=== PATIENT | male | born 1970 | race Two or more races ===

== ENCOUNTER → 2018-06-17 | Outpatient (CLI) | payer OTHER ==
[2018-06-17 12:09] LABS: Basophils % (A) 1 %; Eosinophils # (A) 0.1 k/uL (0-0.7); Eosinophils % (A) 1 %; HCT 38.3 % (39.0-53.0); HGB 11.5 gm/dL (13.0-17.5); Hypochromasia Moderate; Lymphocytes # (A) 1.9 k/uL (1.0-4.8); Lymphocytes % (A) 28 %; MCH 23.2 pg (25.0-35.0); MCHC 30.1 g/dL (31.0-37.0); MCV 76.9 fL (80.0-100.0); Mean Platelet Volume 6.4; Monocytes # (A) 0.3 k/uL (0-1.0); Monocytes % (A) 4 %; Neutrophils # (A) 4.6 k/uL (1.3-7.7); Neutrophils % (A) 66 %; Platelet Count 287 k/uL (150-450); RBC 4.98 m/uL (4.30-5.90)
[2018-06-17 12:33] LABS: Cholesterol 182 mg/dL (<200); Glucose 113 mg/dL (74-99); HDL Cholesterol 42 mg/dL (40-60); LDL Cholesterol,Calculated 96 mg/dL (0-99); Triglycerides 218 mg/dL (<150)
[2018-06-17 16:43] LABS: Hemoglobin A1C 6.6 % (4.0-6.0)
[2018-06-18 08:44] LABS: Clozapine (Clozaril) 831 ng/mL (200-700); Norclozapine 236 ng/mL (200-700)
== END | disposition home or self-care (01) ==
LOC: LABWHC1 11:43
PROVIDERS: ATTEND Psychiatry & Neurology Psychiatry
DX: F25.1 Schizoaffective disorder, depressive type (principal); Z79.899 Other long term (current) drug therapy
CPT/HCPCS: 36415; 80061; 80159; 82947; 83036; 85025

== ENCOUNTER → 2018-07-28 | Outpatient (CLI) | payer OTHER ==
[2018-07-28 18:19] LABS: Urine Alcohol Positive (Negative); Urine Barbiturate Negative (Negative); Urine Cocaine Negative (Negative); Urine Methadone Negative (Negative); Urine Opiates Negative (Negative); Urine Phencyclidine Negative (Negative)
== END ==
LOC: LABWHC1 11:15
PROVIDERS: ATTEND Psychiatry & Neurology Psychiatry
DX: Z51.81 Encounter for therapeutic drug level monitoring (principal); Z79.899 Other long term (current) drug therapy
CPT/HCPCS: 80306

== ENCOUNTER → 2018-08-18 | Outpatient (CLI) | payer OTHER ==
[2018-08-19 07:29] LABS: Clozapine (Clozaril) 388 ng/mL (200-700); Norclozapine 138 ng/mL (200-700)
== END | disposition home or self-care (01) ==
LOC: LABWHC1 09:17
PROVIDERS: ATTEND Psychiatry & Neurology Psychiatry
DX: Z51.81 Encounter for therapeutic drug level monitoring (principal); Z79.899 Other long term (current) drug therapy
CPT/HCPCS: 36415; 80159

== ENCOUNTER 2019-03-02 08:06 | Emergency (ER) | payer OTHER ==
[2019-03-02] MEDS ORDERED: SODIUM CHLORIDE 0.9% 500 ML 500 ML IV STA (08:36)
--- NOTE | 2019-03-02 08:59 | ED ---
General Adult HPI - General Chief complaint: Syncope Stated complaint: syncope/fall/leg pain Time Seen by Provider: 03/02/19 08:06 Source: patient, RN notes reviewed Mode of arrival: ambulatory Limitations: no limitations - History of Present Illness Initial comments: This is a 48-year-old male presents emergency Department complaining of right knee pain. Patient states he got lightheaded today and fell and hurt his right knee. Patient states she's had multiple episodes of being lightheaded when he stands too long. Patient states sitting down usually makes go away. Patient states today he fell he did not sit down quickly enough and he fell to the ground. Patient denies ever losing consciousness per patient denies any head or neck pain. Patient denies any palpitations. Patient denies chest pain. Patient denies difficulty breathing shortness of breath. Patient denies any abdominal pain. Patient denies any recent sickness. Patient denies nausea vomiting. Patient denies any recent fever or cough. Patient states he can walk on his knee but it still hurts and he thinks is a little swollen. Patient denies any headache patient denies any numbness or weakness. - Related Data Home Medications Medication Instructions Recorded Confirmed Aspirin EC [Ecotrin Low Dose] 81 mg PO DAILY 03/02/19 03/02/19 Ferrous Sulfate [Feosol] 325 mg PO DAILY 03/02/19 03/02/19 Lisinopril [Zestril] 2.5 mg PO DAILY 03/02/19 03/02/19 Multivitamins, Thera [Multivitamin 1 tab PO DAILY 03/02/19 03/02/19 (formulary)] [place]-3 Fatty Acids/Fish Oil [Fish 1 cap PO DAILY 03/02/19 03/02/19 Oil 1,000 mg Softgel] Simvastatin [Zocor] 40 mg PO HS 03/02/19 03/02/19 cloZAPine [Clozaril] 300 mg PO HS 03/02/19 03/02/19 fluPHENAZine DECANOATE [Prolixin 25 mg IM [id number] 03/02/19 03/02/19 Decanoate] metFORMIN HCL [Glucophage] 500 mg PO BID 03/02/19 03/02/19 Allergies Allergy/AdvReac Type Severity Reaction Status Date / Time No Known Allergies Allergy Verified 03/02/19 08:26 Review of Systems ROS Statement: Those systems with pertinent positive or pertinent negative responses have been documented in the HPI. ROS Other: All systems not noted in ROS Statement are negative. Past Medical History Past Medical History: Diabetes Mellitus History of Any Multi-Drug Resistant Organisms: None Reported Past Surgical History: Adenoidectomy, Appendectomy, Tonsillectomy Past Psychological History: Bipolar, Schizophrenia Smoking Status: Former smoker Past Alcohol Use History: None Reported Past Drug Use History: None Reported General Exam - General Exam Comments Initial Comments: GENERAL: Patient is well-developed and well-nourished. Patient is nontoxic and well- hydrated and is in mild distress. ENT: Neck is soft and supple. No significant lymphadenopathy is noted. Oropharynx is clear. Moist mucous membranes. Neck has full range of motion without eliciting any pain. EYES: The sclera were anicteric and conjunctiva were pink and moist. Extraocular movements were intact and pupils were equal round and reactive to light. Eye lids were unremarkable. PULMONARY: Unlabored respirations. Good breath sounds bilaterally. No audible rales rhonchi or wheezing was noted. CARDIOVASCULAR: There is a regular rate and rhythm without any murmurs gallops or rubs. ABDOMEN: Soft and nontender with normal bowel sounds. SKIN: Skin is clear with no lesions or rashes and otherwise unremarkable. NEUROLOGIC: Patient is alert and oriented x3. Cranial nerves II through XII are grossly intact. Motor and sensory are also intact. Normal speech, volume and content. Symmetrical smile. MUSCULOSKELETAL: Patient's left knee has no ligamentous laxity however he does have a small effusion. LYMPHATICS: No significant lymphadenopathy is noted PSYCHIATRIC: Normal psychiatric evaluation. Limitations: no limitations Course Vital Signs 03/02/19 03/02/19 03/02/19 08:06 08:22 08:30 Temperature 97.6 F Pulse Rate 109 H Pulse Rate [ Pulse Oximetery ] Pulse Rate [ Sitting Pulse Oximetery] Pulse Rate [ Standing Pulse Oximetery] Respiratory 16 Rate Blood Pressure 107/67 99/73 Blood Pressure [Right Arm Sitting] Blood Pressure [Right Arm Standing] Blood Pressure [Right Arm Supine] O2 Sat by Pulse 96 100 95 Oximetry 03/02/19 03/02/19 03/02/19 09:00 09:30 10:04 Temperature Pulse Rate 96 Pulse Rate [ 89 Pulse Oximetery ] Pulse Rate [ 94 Sitting Pulse Oximetery] Pulse Rate [ 103 H Standing Pulse Oximetery] Respiratory 18 Rate Blood Pressure 100/72 108/65 Blood Pressure 111/81 [Right Arm Sitting] Blood Pressure 109/80 [Right Arm Standing] Blood Pressure 110/72 [Right Arm Supine] O2 Sat by Pulse 95 Oximetry Medical Decision Making - Lab Data Result diagrams: 03/02/19 08:58 03/02/19 08:58 Lab Results 03/02/19 03/02/19 03/02/19 Range/Units 08:58 08:58 08:58 WBC 10.5 (3.8-10.6) k/uL RBC 5.04 (4.30-5.90) m/uL Hgb 11.6 L (13.0-17.5) gm/dL Hct 36.9 L (39.0-53.0) % MCV 73.2 L (80.0-100.0) fL MCH 23.0 L (25.0-35.0) pg MCHC 31.4 (31.0-37.0) g/dL RDW 13.6 (11.5-15.5) % Plt Count 313 (150-450) k/uL Neutrophils % 78 % Lymphocytes % 16 % Monocytes % 3 % Eosinophils % 2 % Basophils % 0 % Neutrophils # 8.2 H (1.3-7.7) k/uL Lymphocytes # 1.7 (1.0-4.8) k/uL Monocytes # 0.3 (0-1.0) k/uL Eosinophils # 0.2 (0-0.7) k/uL Basophils # 0.0 (0-0.2) k/uL Hypochromasia Slight Microcytosis Slight PT 10.9 (9.0-12.0) sec INR 1.0 (<1.2) APTT 24.3 (22.0-30.0) sec Sodium 138 (137-145) mmol/L Potassium 4.1 (3.5-5.1) mmol/L Chloride 100 (98-107) mmol/L Carbon Dioxide 25 (22-30) mmol/L Anion Gap 13 mmol/L BUN 9 (9-20) mg/dL Creatinine 0.73 (0.66-1.25) mg/dL Est GFR (CKD-EPI)AfAm >90 (>60 ml/min/1.73 sqM) Est GFR (CKD-EPI)NonAf >90 (>60 ml/min/1.73 sqM) Glucose 100 H (74-99) mg/dL Calcium 9.7 (8.4-10.2) mg/dL Magnesium 1.7 (1.6-2.3) mg/dL Total Bilirubin 0.7 (0.2-1.3) mg/dL AST 15 L (17-59) U/L ALT 21 (21-72) U/L Alkaline Phosphatase 56 (38-126) U/L Troponin I (0.000-0.034) ng/mL Total Protein 7.3 (6.3-8.2) g/dL Albumin 4.6 (3.5-5.0) g/dL 03/02/19 Range/Units 08:58 WBC (3.8-10.6) k/uL RBC (4.30-5.90) m/uL Hgb (13.0-17.5) gm/dL Hct (39.0-53.0) % MCV (80.0-100.0) fL MCH (25.0-35.0) pg MCHC (31.0-37.0) g/dL RDW (11.5-15.5) % Plt Count (150-450) k/uL Neutrophils % % Lymphocytes % % Monocytes % % Eosinophils % % Basophils % % Neutrophils # (1.3-7.7) k/uL Lymphocytes # (1.0-4.8) k/uL Monocytes # (0-1.0) k/uL Eosinophils # (0-0.7) k/uL Basophils # (0-0.2) k/uL Hypochromasia Microcytosis PT (9.0-12.0) sec INR (<1.2) APTT (22.0-30.0) sec Sodium (137-145) mmol/L Potassium (3.5-5.1) mmol/L Chloride (98-107) mmol/L Carbon Dioxide (22-30) mmol/L Anion Gap mmol/L BUN (9-20) mg/dL Creatinine (0.66-1.25) mg/dL Est GFR (CKD-EPI)AfAm (>60 ml/min/1.73 sqM) Est GFR (CKD-EPI)NonAf (>60 ml/min/1.73 sqM) Glucose (74-99) mg/dL Calcium (8.4-10.2) mg/dL Magnesium (1.6-2.3) mg/dL Total Bilirubin (0.2-1.3) mg/dL AST (17-59) U/L ALT (21-72) U/L Alkaline Phosphatase (38-126) U/L Troponin I <0.012 (0.000-0.034) ng/mL Total Protein (6.3-8.2) g/dL Albumin (3.5-5.0) g/dL Disposition Clinical Impression: Strain of knee, Knee effusion, Lightheaded Disposition: HOME SELF-CARE Condition: Good Instructions (If sedation given, give patient instructions): Knee Immobilizer (ED), Knee Pain (ED) Additional Instructions: Patient should follow-up with orthopedic surgery for the knee strain. Patient should also follow up with primary medical care doctor for the lightheadedness. Patient should increase intake of water. Is patient prescribed a controlled substance at d/c from ED?: No Referrals: Evie Berg MD [Primary Care Provider] - 1-2 days Time of Disposition: 10:41
[2019-03-02 09:12] LABS: Basophils % (A) 0 %; Eosinophils # (A) 0.2 k/uL (0-0.7); Eosinophils % (A) 2 %; HCT 36.9 % (39.0-53.0); HGB 11.6 gm/dL (13.0-17.5); Hypochromasia Slight; Lymphocytes # (A) 1.7 k/uL (1.0-4.8); Lymphocytes % (A) 16 %; MCHC 31.4 g/dL (31.0-37.0); MCV 73.2 fL (80.0-100.0); Mean Platelet Volume 6.4; Microcytosis Slight; Monocytes # (A) 0.3 k/uL (0-1.0); Monocytes % (A) 3 %; Neutrophils # (A) 8.2 k/uL (1.3-7.7); Neutrophils % (A) 78 %; Platelet Count 313 k/uL (150-450); RBC 5.04 m/uL (4.30-5.90); RDW 13.6 % (11.5-15.5); WBC 10.5 k/uL (3.8-10.6)
--- NOTE | 2019-03-02 09:19 | XR ---
EXAMINATION TYPE: XR chest 2V DATE OF EXAM: 03/02/2019 COMPARISON: NONE HISTORY: Syncope and weakness. TECHNIQUE: Frontal and lateral views of the chest are obtained. FINDINGS: Overlying EKG leads are present. There is no focal air space opacity, pleural effusion, or pneumothorax seen. The cardiac silhouette size is within normal limits. The osseous structures ar e intact. IMPRESSION: No acute cardiopulmonary process.
[2019-03-02 09:21] LABS: ALT 21 U/L (21-72); AST 15 U/L (17-59); Albumin 4.6 g/dL (3.5-5.0); Alkaline Phosphatase 56 U/L (38-126); Anion Gap 13 mmol/L; Blood Urea Nitrogen 9 mg/dL (9-20); Calcium 9.7 mg/dL (8.4-10.2); Carbon Dioxide 25 mmol/L (22-30); Chloride 100 mmol/L (98-107); Glucose 100 mg/dL (74-99); Magnesium 1.7 mg/dL (1.6-2.3); Potassium 4.1 mmol/L (3.5-5.1); Sodium 138 mmol/L (137-145); Total Bilirubin 0.7 mg/dL (0.2-1.3); Total Protein 7.3 g/dL (6.3-8.2)
--- NOTE | 2019-03-02 09:21 | XR ---
EXAMINATION TYPE: XR knee complete RT DATE OF EXAM: 03/02/2019 CLINICAL HISTORY: pain TECHNIQUE: Three views of the right knee are obtained. COMPARISON: None. FINDINGS: There is no acute fracture/dislocation. The tri-compartment joint spaces appear within no rmal limits. Intramedullary area of sclerosis distal femur may reflect bone infarct. Moderate superio r patellar joint effusion. The overlying soft tissue appears unremarkable. IMPRESSION: There is no acute fracture or dislocation.ICD 10 NO FRACTURE, INITIAL EVALUATION
[2019-03-02 09:22] LABS: Partial Thromboplastin Time 24.3 sec (22.0-30.0); Prothrombin Time 10.9 sec (9.0-12.0)
[2019-03-02 09:38] VITALS: RESP 18
[2019-03-02 11:02] VITALS: BP 106/69; PULSE 98; TEMP 98
== END 2019-03-02 11:00 | disposition home or self-care (01) ==
LOC: EC 08:06
DX: S86.911A Strain of unspecified muscle(s) and tendon(s) at lower leg level, right leg, initial encounter (principal); M25.461 Effusion, right knee; R42 Dizziness and giddiness; E11.9 Type 2 diabetes mellitus without complications; F31.9 Bipolar disorder, unspecified; F20.9 Schizophrenia, unspecified; Z87.891 Personal history of nicotine dependence; Z79.84 Long term (current) use of oral hypoglycemic drugs; Z79.899 Other long term (current) drug therapy; W19.XXXA Unspecified fall, initial encounter
CPT/HCPCS: 36415; 93005; 80053; 83735; 84484; 85025; 85610; 85730; 73562; 71046; 99283; 96360; L1830

== ENCOUNTER → 2019-03-16 | Outpatient (CLI) | payer OTHER ==
--- NOTE | 2019-03-16 22:41 | MR ---
EXAMINATION TYPE: MR knee RT wo con DATE OF EXAM: 03/16/2019 COMPARISON: Right knee x-ray March 02, 2019. HISTORY: Pain in right knee with swelling for 2 weeks since fall injury TECHNIQUE: Multiplanar, multisequence images of the knee is performed without IV contrast. FINDINGS: MEDIAL MENISCUS: Anterior horn is intact without tear. Posterior horn is truncated with increased sig nal along the posterior margin does not definitively extend to articular surface. LATERAL MENISCUS: Anterior and posterior horns are intact without tear. CRUCIATE LIGAMENTS: The posterior cruciate ligament is intact and unremarkable. Anterior cruciate lig ament shows increased signal and fanning of the proximal fibers. COLLATERAL LIGAMENTS: The medial collateral ligament and lateral collateral ligament complex are inta ct. Mild fluid signal surrounds medial collateral ligament. EXTENSOR MECHANISM: Visualized quadriceps and patellar tendons are intact. EFFUSION: Moderate to large size suprapatellar joint effusion. POPLITEAL CYST: No popliteal/prabhakar cyst. TRICOMPARTMENT SPACES: Tricompartment articular cartilage is fairly well maintained. No significant s purring is seen. CARTILAGE: Tricompartmental articular cartilage is preserved. BONE MARROW SIGNAL: Heterogeneous low T1 and increased T2 signal distal femoral metadiaphysis measure s nearly 3 cm long axis corresponds to sclerotic lesion favoring benign chondroid lesion if there is no evidence of localized pain persists this level. There is heterogeneous increased T2 signal involving the lateral tibial plateau anterior aspect in th e posterior medial tibial plateau.. OTHER: No additional significant abnormality is appreciated. IMPRESSION: 1. Moderate to large suprapatellar joint effusion. 2. At least intrasubstance tear posterior horn medial meniscus. 3. Myxoid degeneration ACL. 4. Osseous contusion or bone marrow edema involving the lateral tibial plateau anteriorly and seconda ry involving the posterior medial tibial plateau. 5. Mild MCL sprain injury. 6. Distal femoral sclerotic bone lesion favors benign chondroid lesion such as enchondroma, correlate clinically.
== END ==
LOC: RADMRIMAIN 17:31
PROVIDERS: ATTEND Internal Medicine
DX: S83.241A Other tear of medial meniscus, current injury, right knee, initial encounter (principal); M24.211 Disorder of ligament, right shoulder; S89.91XA Unspecified injury of right lower leg, initial encounter; M89.9 Disorder of bone, unspecified

== ENCOUNTER → 2019-03-30 | Outpatient (CLI) | payer OTHER ==
[2019-03-30 09:38] LABS: Basophils % (A) 1 %; Eosinophils # (A) 0.2 k/uL (0-0.7); Eosinophils % (A) 2 %; HCT 36.6 % (39.0-53.0); HGB 11.1 gm/dL (13.0-17.5); Hypochromasia Moderate; Lymphocytes # (A) 3.1 k/uL (1.0-4.8); Lymphocytes % (A) 35 %; MCH 22.6 pg (25.0-35.0); MCHC 30.3 g/dL (31.0-37.0); MCV 74.6 fL (80.0-100.0); Mean Platelet Volume 6.3; Microcytosis Slight; Monocytes # (A) 0.3 k/uL (0-1.0); Monocytes % (A) 3 %; Neutrophils # (A) 5.1 k/uL (1.3-7.7); Neutrophils % (A) 57 %; Platelet Count 320 k/uL (150-450); RBC 4.91 m/uL (4.30-5.90)
== END | disposition home or self-care (01) ==
LOC: LABWHC1 09:01 → EDSTATUS 09:08
PROVIDERS: ATTEND Psychiatry & Neurology Psychiatry
DX: F25.1 Schizoaffective disorder, depressive type (principal); Z79.899 Other long term (current) drug therapy
CPT/HCPCS: 36415; 85025

== ENCOUNTER → 2019-05-25 | Outpatient (CLI) | payer OTHER ==
[2019-05-26 09:44] LABS: Clozapine (Clozaril) 553 ng/mL (200-700); Norclozapine 171 ng/mL (200-700)
== END | disposition home or self-care (01) ==
LOC: LABWHC1 09:43
PROVIDERS: ATTEND Psychiatry & Neurology Psychiatry
DX: Z79.899 Other long term (current) drug therapy (principal)
CPT/HCPCS: 36415; 80159

== ENCOUNTER → 2020-03-25 | Outpatient (CLI) | payer OTHER ==
[2020-03-25 11:30] LABS: Basophils % (A) 0 %; Eosinophils # (A) 0.2 k/uL (0-0.7); Eosinophils % (A) 1 %; HCT 39.2 % (39.0-53.0); HGB 12.2 gm/dL (13.0-17.5); Hypochromasia Slight; Lymphocytes # (A) 1.7 k/uL (1.0-4.8); Lymphocytes % (A) 12 %; MCH 23.7 pg (25.0-35.0); MCHC 31.1 g/dL (31.0-37.0); MCV 76.1 fL (80.0-100.0); Mean Platelet Volume 7.1; Monocytes # (A) 0.4 k/uL (0-1.0); Monocytes % (A) 3 %; Neutrophils # (A) 11.2 k/uL (1.3-7.7); Neutrophils % (A) 82 %; Platelet Count 307 k/uL (150-450); RBC 5.15 m/uL (4.30-5.90); RDW 14.3 % (11.5-15.5); WBC 13.7 k/uL (3.8-10.6)
[2020-03-25 15:49] LABS: Urine Alcohol Negative (Negative); Urine Barbiturate Negative (Negative); Urine Cocaine Negative (Negative); Urine Methadone Negative (Negative); Urine Opiates Negative (Negative); Urine Phencyclidine Negative (Negative)
== END | disposition home or self-care (01) ==
LOC: LABWHC1 10:29
PROVIDERS: ATTEND Psychiatry & Neurology Psychiatry
DX: F25.1 Schizoaffective disorder, depressive type (principal); Z79.899 Other long term (current) drug therapy
CPT/HCPCS: 36415; 80306; 85025

== ENCOUNTER → 2020-09-09 | Outpatient (CLI) | payer OTHER ==
[2020-09-09 20:20] LABS: African American GFR (CKD) 117.5 (60.0-200.0); Albumin 4.8 g/dL (3.80-4.90); Anion Gap 8.3 mmol/L (4.00-12.00); BUN/Creat Ratio 8.89 Ratio (12.00-20.00); Calcium 9.5 mg/dL (8.7-10.3); Carbon Dioxide 25.7 mmol/L (21.6-31.8); Chol/HDL Ratio 3.02; LDL Cholesterol,Calculated 82.4 mg/dL (0.0-131.0); Non-African American GFR(CKD) 101.4 (60.0-200.0); Phosphorus 3.9 mg/dL (2.4-5.1); Potassium 4.7 mmol/L (3.5-5.5); VLDL Calculation 14.6 mg/dL (5.00-40.00)
[2020-09-09 20:28] LABS: T4, Free (Free Thyroxine) 1.3 ng/dL (0.80-1.80)
== END | disposition home or self-care (01) ==
LOC: LABWHC1 11:03
PROVIDERS: ATTEND Psychiatry & Neurology Psychiatry
DX: Z51.81 Encounter for therapeutic drug level monitoring (principal); Z79.899 Other long term (current) drug therapy
CPT/HCPCS: 36415; 80061; 80069; 80159; 84439; 84443

== ENCOUNTER 2021-02-21 16:48 | Inpatient (IN) | payer MEDICAID, OTHER ==
--- NOTE | 2021-02-21 18:00 | ED ---
General Adult HPI - General Chief complaint: Psychiatric Symptoms Stated complaint: Mental Health Time Seen by Provider: 02/21/21 17:17 Source: patient, RN notes reviewed Mode of arrival: ambulatory Limitations: no limitations - History of Present Illness Initial comments: Patient is a pleasant 50-year-old male presenting to the emergency department for mental health evaluation. Patient states that he is feeling paranoid. Patient feels people are watching him. Patient feels that he has jobs to do it is not drank a job with him. Patient states he has not been sleeping or eating well. Patient feels he does need to be hospitalized to get his thoughts straight. Patient does have racing thoughts. No suicidal thoughts or homicidal thoughts. No hallucinations. Patient states he has been taking his medications for the most part. - Related Data Home Medications Medication Instructions Recorded Confirmed Aspirin EC [Ecotrin Low Dose] 81 mg PO DAILY 03/02/19 02/21/21 Ferrous Sulfate [Feosol] 325 mg PO DAILY 03/02/19 02/21/21 Multivitamins, Thera [Multivitamin 1 tab PO DAILY 03/02/19 02/21/21 (formulary)] [place]-3 Fatty Acids/Fish Oil [Fish 1 cap PO BID 03/02/19 02/21/21 Oil 1,000 mg Softgel] Simvastatin [Zocor] 40 mg PO HS 03/02/19 02/21/21 cloZAPine [Clozaril] 400 mg PO HS 03/02/19 02/21/21 fluPHENAZine decanoate [Prolixin 50 mg IM [id number] 03/02/19 02/21/21 Decanoate] lisinopriL [Zestril] 2.5 mg PO DAILY 03/02/19 02/21/21 metFORMIN HCL [Glucophage] 500 mg PO BID 03/02/19 02/21/21 Glycopyrrolate [Robinul Forte] 2 mg PO HS 02/21/21 02/21/21 Allergies Allergy/AdvReac Type Severity Reaction Status Date / Time No Known Allergies Allergy Verified 02/21/21 17:50 Review of Systems ROS Statement: Those systems with pertinent positive or pertinent negative responses have been documented in the HPI. ROS Other: All systems not noted in ROS Statement are negative. Constitutional: Denies: fever Eyes: Denies: eye pain ENT: Denies: ear pain Respiratory: Denies: cough Cardiovascular: Denies: chest pain Endocrine: Denies: fatigue Gastrointestinal: Denies: abdominal pain Genitourinary: Denies: dysuria Musculoskeletal: Denies: back pain Skin: Denies: rash Neurological: Denies: weakness Psychiatric: Reports: as per HPI Past Medical History Past Medical History: Diabetes Mellitus History of Any Multi-Drug Resistant Organisms: None Reported Past Surgical History: Adenoidectomy, Appendectomy, Tonsillectomy Past Psychological History: Bipolar, Schizophrenia Smoking Status: Never smoker Past Alcohol Use History: None Reported Past Drug Use History: None Reported General Exam Limitations: no limitations General appearance: alert, in no apparent distress Head exam: Present: atraumatic Eye exam: Present: normal appearance Neck exam: Present: normal inspection Respiratory exam: Present: normal lung sounds bilaterally Cardiovascular Exam: Present: regular rate, normal rhythm GI/Abdominal exam: Present: soft. Absent: tenderness Extremities exam: Present: normal inspection Neurological exam: Present: alert Psychiatric exam: Present: flat affect Expanded Focused psych exam: Present: loose associations Skin exam: Present: normal color Course Vital Signs 02/21/21 02/21/21 16:49 19:01 Temperature 97.4 F L Pulse Rate 130 H 117 H Respiratory 18 18 Rate Blood Pressure 123/86 120/75 O2 Sat by Pulse 99 100 Oximetry Medical Decision Making - Medical Decision Making Patient seen by mental health services with plans for admission. - Lab Data Lab Results 02/21/21 Range/Units 18:11 Urine Opiates Screen Not Detected (NotDetected) Ur Oxycodone Screen Not Detected (NotDetected) Urine Methadone Screen Not Detected (NotDetected) Ur Propoxyphene Screen Not Detected (NotDetected) Ur Barbiturates Screen Not Detected (NotDetected) U Tricyclic Antidepress Detected H (NotDetected) Ur Phencyclidine Scrn Not Detected (NotDetected) Ur Amphetamines Screen Not Detected (NotDetected) U Methamphetamines Scrn Not Detected (NotDetected) U Benzodiazepines Scrn Not Detected (NotDetected) Urine Cocaine Screen Not Detected (NotDetected) U Marijuana (THC) Screen Not Detected (NotDetected) Disposition Clinical Impression: Schizophrenia, acute Disposition: TRANSFER TO PSYCH HOSP/UNIT Is patient prescribed a controlled substance at d/c from ED?: No Referrals: Evie Berg MD [Primary Care Provider] - 1-2 days Decision Time: 19:24
[2021-02-21 18:33] LABS: Amphetamine Screen,Urine Not Detected (NotDetected); Barbiturate Screen,Urine Not Detected (NotDetected); Benzodiazepines Screen,Urine Not Detected (NotDetected); Cocaine Screen,Urine Not Detected (NotDetected); Methadone Screen, Urine Not Detected (NotDetected); Opiate Screen,Urine Not Detected (NotDetected); Oxycodone Screen, Urine Not Detected (NotDetected); Phencyclidine Screen,Urine Not Detected (NotDetected); Tricyclic Antidepressant,Urine Detected (NotDetected); Urn Cannabinoid Scrn Not Detected (NotDetected)
[2021-02-21 19:55] LABS: Basophils # (A) 0.1 k/uL (0-0.2); Basophils % (A) 1 %; Eosinophils # (A) 0.1 k/uL (0-0.7); Eosinophils % (A) 1 %; HCT 31.9 % (39.0-53.0); HGB 10.5 gm/dL (13.0-17.5); Lymphocytes # (A) 2.2 k/uL (1.0-4.8); Lymphocytes % (A) 22 %; MCH 24.1 pg (25.0-35.0); MCV 73.2 fL (80.0-100.0); Mean Platelet Volume 6.4; Microcytosis Slight; Monocytes # (A) 0.5 k/uL (0-1.0); Monocytes % (A) 5 %; Neutrophils # (A) 7.2 k/uL (1.3-7.7); Neutrophils % (A) 70 %; Platelet Count 389 k/uL (150-450); RBC 4.36 m/uL (4.30-5.90); RDW 13.3 % (11.5-15.5); WBC 10.3 k/uL (3.8-10.6)
[2021-02-22] MEDS ORDERED: LORazepam 1 MG TAB PO PRN (00:01)
[2021-02-22] MEDS ORDERED: MAG HYDROX/AL HYDROX/SIMETH 30 ML CUP PO PRN (00:01)
[2021-02-22] MEDS ORDERED: ACETAMINOPHEN TAB 325 MG TAB PO PRN (00:01)
[2021-02-22] MEDS ORDERED: MAGNESIUM HYDROXIDE 2,400 MG/10 ML CUP PO PRN (00:01)
[2021-02-22] MEDS ORDERED: HALOPERIDOL LACTATE 5 MG/ML 1 ML VIAL IM PRN (00:03)
[2021-02-22] MEDS ORDERED: LORazepam 2 MG/ML INJ IM PRN (00:03)
[2021-02-22] MEDS ORDERED: haloperidoL 5 MG TAB PO PRN (00:03)
[2021-02-22 07:55] LABS: Glucose,Whole Blood 106 mg/dL (75-99)
[2021-02-22] MEDS: ASPIRIN 81 MG PO SCH (08:11)
[2021-02-22] MEDS: metFORMIN 500 MG TAB PO SCH ×2 (08:11→17:33)
[2021-02-22] MEDS ORDERED: NON FORMULARY DRUG (Omega-3 Fatty Acids/Fish Oil [Fish Oil 1,000 Mg Softgel] 1 EACH Capsul PO SCH (09:00)
[2021-02-22] MEDS: MULTIVITAMINS, THERA 1 EACH TAB PO SCH (09:09)
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
[2021-02-22] MEDS ORDERED: fluPHENAZine DECANOATE 25 MG/ML 5ML MDV IM ONE (11:00)
[2021-02-22 12:38] LABS: Glucose,Whole Blood 91 mg/dL (75-99)
[2021-02-22 17:33] LABS: Glucose,Whole Blood 81 mg/dL (75-99)
[2021-02-22] MEDS: FERROUS SULFATE 325 MG TAB PO SCH (17:33)
--- NOTE | 2021-02-22 18:54 | P.CONS ---
History of Present Illness - Reason for Consult Medical clearance, diabetes mellitus-Hypertension - History of Present Illness Patient was admitted voluntarily for acute psychosis and patient was diagnosed with schizoaffective disorder. Patient does have history of diabetes with us. I do not believe patient has essential hypertension but patient is on lisinopril probably for nephro protective properties in a diabetic. Patient any fever chills nausea vomiting abdominal pain dysuria patient denied any compensative this time patient wishes he can have some sleep. Patient denied any smoking history of cold abuse or drug abuse history Review of Systems REVIEW OF SYSTEMS: CONSTITUTIONAL: No fever, no malaise, no fatigue. HEENT: No recent visual problems or hearing problems. Denied any sore throat. CARDIOVASCULAR: No chest pain, orthopnea, PND, no palpitations, no syncope. PULMONARY: No shortness of breath, no cough, no hemoptysis. GASTROINTESTINAL: No diarrhea, no nausea, no vomiting, no abdominal pain. NEUROLOGICAL: No headaches, no weakness, no numbness. HEMATOLOGICAL: Denies any bleeding or petechiae. GENITOURINARY: Denies any burning micturition, frequency, or urgency. MUSCULOSKELETAL/RHEUMATOLOGICAL: Denies any joint pain, swelling, or any muscle pain. ENDOCRINE: Denies any polyuria or polydipsia. The rest of the 14-point review of systems is negative. Past Medical History Past Medical History: Diabetes Mellitus History of Any Multi-Drug Resistant Organisms: None Reported Past Surgical History: Adenoidectomy, Appendectomy, Tonsillectomy Smoking Status: Never smoker Medications and Allergies Home Medications Medication Instructions Recorded Confirmed Type Aspirin EC [Ecotrin Low Dose] 81 mg PO DAILY 03/02/19 02/21/21 History Ferrous Sulfate [Feosol] 325 mg PO DAILY 03/02/19 02/21/21 History Multivitamins, Thera [Multivitamin 1 tab PO DAILY 03/02/19 02/21/21 History (formulary)] [place]-3 Fatty Acids/Fish Oil [Fish 1 cap PO BID 03/02/19 02/21/21 History Oil 1,000 mg Softgel] Simvastatin [Zocor] 40 mg PO HS 03/02/19 02/21/21 History cloZAPine [Clozaril] 400 mg PO HS 03/02/19 02/21/21 History fluPHENAZine decanoate [Prolixin 50 mg IM [id number] 03/02/19 02/21/21 History Decanoate] lisinopriL [Zestril] 2.5 mg PO DAILY 03/02/19 02/21/21 History metFORMIN HCL [Glucophage] 500 mg PO BID 03/02/19 02/21/21 History Glycopyrrolate [Robinul Forte] 2 mg PO HS 02/21/21 02/21/21 History Allergies Allergy/AdvReac Type Severity Reaction Status Date / Time No Known Allergies Allergy Verified 02/21/21 23:51 Physical Exam Vitals: Vital Signs Temp Pulse Pulse Resp BP BP Pulse Ox 02/22/21 00:48 98.4 F 105 H 16 116/81 97 02/21/21 19:46 110 H 16 99 02/21/21 19:01 117 H 18 120/75 100 Intake and Output 02/22/21 02/22/21 02/22/21 06:59 14:59 22:59 Other: Weight 91.682 kg PHYSICAL EXAMINATION: GENERAL: The patient is alert and oriented x3, not in any acute distress. Well developed, well nourished. HEENT: Pupils are round and equally reacting to light. EOMI. No scleral icterus. No conjunctival pallor. Normocephalic, atraumatic. No pharyngeal erythema. No thyromegaly. Patient does appear to have lack of sleep. CARDIOVASCULAR: S1 and S2 present. No murmurs, rubs, or gallops. PULMONARY: Chest is clear to auscultation, no wheezing or crackles. ABDOMEN: Soft, nontender, nondistended, normoactive bowel sounds. No palpable organomegaly. MUSCULOSKELETAL: No joint swelling or deformity. EXTREMITIES: No cyanosis, clubbing, or pedal edema. NEUROLOGICAL: Gross neurological examination did not reveal any focal deficits. SKIN: No rashes. Results CBC & Chem 7: 02/21/21 19:45 Labs: Abnormal Lab Results - Last 24 Hours (Table) 02/21/21 02/22/21 Range/Units 19:45 07:52 Hgb 10.5 L (13.0-17.5) gm/dL Hct 31.9 L (39.0-53.0) % MCV 73.2 L (80.0-100.0) fL MCH 24.1 L (25.0-35.0) pg POC Glucose (mg/dL) 106 H (75-99) mg/dL Assessment and Plan Plan: -Type 2 diabetes mellitus can you with metformin. Continue with lisinopril as well -Schizoaffective disorder: Management as per primary service -Hyperlipidemia continue simvastatin No further recommendations from medicine perspective call us back if needed will sign off at this time.
[2021-02-22] MEDS: ATORVASTATIN 20 MG TAB PO SCH (20:33)
[2021-02-22] MEDS: cloZAPine 25 MG TAB PO SCH (20:34)
[2021-02-22 20:39] LABS: Glucose,Whole Blood 119 mg/dL (75-99)
[2021-02-22] MEDS: GLYCOPYRROLATE 1 MG TAB PO SCH (21:22)
[2021-02-23] MEDS: ASPIRIN 81 MG PO SCH (07:57)
[2021-02-23] MEDS: metFORMIN 500 MG TAB PO SCH ×2 (07:57→17:38)
[2021-02-23] MEDS: GLYCOPYRROLATE 1 MG TAB PO SCH ×2 (07:58→21:23)
[2021-02-23] MEDS: MULTIVITAMINS, THERA 1 EACH TAB PO SCH (07:58)
[2021-02-23 08:02] VITALS: RESP 20; TEMP 97.8
[2021-02-23 08:06] LABS: Glucose,Whole Blood 108 mg/dL (75-99)
[2021-02-23 08:39] LABS: Clozapine (Clozaril) 404 ng/mL (200-700); Norclozapine 113 ng/mL (200-700)
--- NOTE | 2021-02-23 11:37 | P.PN ---
Progress Note - Text Progress Note Date: 02/23/21 Interval History: Patient was seen wandering the hallways and was directable and agreeable to jessica gonzales with machine sign writer in the office. Patient appeared to have a mild improvement in his affect and appeared to be in a better mood today. He states that he was able to sleep "okay" and when asked how long he states approximately 10 hours last night. He claims that he has been taking his medications as prescribed and was fairly concrete in his thought process. He asked about his lab work and that he needs to scrap picker his medications from [facility] and also obtain his lab work for tomorrow. It was explained to patient that his dose of clozapine will be changing and also the frequency of Prolixin D will also change and patient was agreeable to this. He states that he tolerated the long-acting injection well yesterday and is denying any side effects. He states that his mood is better today and is denying any anxiety. He claims that he is not feeling as if the devil is after him today and is denying paranoia. When asked more about the stressors that brought him to the hospital he states "it's hard for me to describe" and then became silent staring at machine sign writer. He claims that he showered this morning and has been eating his meals. He has been attempting to go do groups whenever possible. At this time patient denies any suicidal or homical ideations, intent or plan. Patient denies any auditory, visual hallucinations. Patient denies any side effects from the medications and has been compliant with meds. Mental Status Exam: General Appearance: Patient appears to be a tall, stated age is alert, directable, and attempts to cooperate. Bizarre at times and blankly stares at machine sign writer at times. Patient appears to have improving hygiene and grooming. Behavior: Patient is seated without any agitated behavior. Attempts to cooperate. Speech: Patient's speech is fluent and nonpressured. Monotone and concrete Mood/Affect: Patient reports their mood is "better", affect is congruent and constricted, improving Suicidality/Homicidality: Patient denies having any homicidal ideation intent or plan. Denies any suicidal ideations intent or plan Perceptions: Patient denies any visual hallucinations and denies any auditory hallucinations Though content/process: Patient is more logical today and more goal oriented. He is not endorsing any delusions. Paranoia improving. Memory and concentration: AOX3, grossly intact for the purposes of this session. Judgment and insight: Improving mildly Assessment Schizoaffective disorder unspecified Plan: -Patient continues to meet criteria for inpatient psychiatric admission for symptom stabilization and safety. Patient has signed adult voluntary form and medication consent and was placed in patient's chart. -Medications: Continue with Clozaril 50 mg daily at bedtime for psychosis/mood stabilization. Patient received Prolixin D 50 mg IM dose yesterday and tolerated it well. His next dose will be due on 03/01/21. -Clozaril level - 404, Norclozaril level - 113 -Label Stitcher spoke with Dr. Grigsby from [facility] over the phone on 02/22/21 to discuss patient's care and treatment and he agrees with the above-mentioned plan. -When necessary Ativan and Haldol for agitation/aggression. -NRT - not needed as patient does not smoke. -SW on board for discharge planning. Encouraged the patient to participate in milieu. Would suggest that patient be added to the Next Step program for closer monitoring post discharge. Likely discharge tomorrow.
[2021-02-23 12:54] LABS: Glucose,Whole Blood 94 mg/dL (75-99)
[2021-02-23] MEDS: FERROUS SULFATE 325 MG TAB PO SCH (17:38)
[2021-02-23 17:47] LABS: Glucose,Whole Blood 92 mg/dL (75-99)
[2021-02-23 20:01] LABS: Glucose,Whole Blood 114 mg/dL (75-99)
[2021-02-23] MEDS: ATORVASTATIN 20 MG TAB PO SCH (21:23)
[2021-02-23] MEDS: cloZAPine 25 MG TAB PO SCH (21:23)
[2021-02-24 07:44] LABS: Glucose,Whole Blood 102 mg/dL (75-99)
[2021-02-24] MEDS: ASPIRIN 81 MG PO SCH (08:34)
[2021-02-24] MEDS: MULTIVITAMINS, THERA 1 EACH TAB PO SCH (08:34)
[2021-02-24] MEDS: metFORMIN 500 MG TAB PO SCH (08:34)
[2021-02-24] MEDS: GLYCOPYRROLATE 1 MG TAB PO SCH (08:34)
[2021-02-24 08:36] VITALS: BP 119/74; PULSE 109
--- NOTE | 2021-02-24 09:19 | P.DS ---
Providers Date of admission: 02/21/21 23:39 Expected date of discharge: 02/24/21 Attending physician: Stefan Eddy MD Consults: 02/22/21 00:01 Consult Physician Routine Consulting Provider: Marcial Reeves Consult Reason/Comments: H&P and medical Do you want consulting provider notified?: Yes Primary care physician: Morena Case - Discharge Diagnosis(es) (1) Schizoaffective disorder Current Visit: Yes Status: Acute Priority: High Hospital Course: Admission HPI: Admission note was completed by public relations writer "Patient is a 50-year-old - Greek male with a history of schizoaffective disorder, single lives alone in an apartment and has 2 kids and collect SSI. Patient presented to the hospital yesterday and was endorsing paranoia claiming in the ER that people are watching him and endorsing poor appetite and sleep having racing thoughts. Patient had a UDS which was positive for TCAs. Patient was agreeable to speak right in the office and appeared to have a blank and constricted affect. He was attempting to cooperate. He claims that he was brought in by his pillowcase turner to the hospital for evaluation. He states that "the devil was after me" and claimed that "the devil wouldn't like me". He was fairly religiously preoccupied and states claimed that "I want to do what is right in life". He was fairly bizarre with loose associations and illogical during the conversation. He made comments about potentially losing his apartment and was fairly bizarre. He spoke about being diagnosed with schizoaffective disorder in [address] Grigsby at [facility]. He is receiving Prolixin D 50 mg IM shots every 2 weeks and was last given on 02/13. He claims that he is feeling overwhelmed in dealing with stressors in his life. He claims that he has been mostly compliant with his medications. He is denying any mood or anxiety symptoms today. He states that he gets fair sleep. He states that he has a fair appetite. Patient denies any suicidal or homicidal ideations intent or plan. At this time patient denies any auditory or visual hallucinations. Patient claims that he uses no recreational drugs or cigarettes." Hospital course: Upon admission to the unit patient was initially delusional and bizarre. Patient was however directable and agreeable to commence treatment and signed adult voluntary form. Patient got along well with other patients on the unit and followed unit protocol. Patient was compliant with the medications and denied any side effects throughout hospital course. Patient was started on closet or a however was decreased down to 50 mg daily at bedtime for psychosis/mood stabilization due to questionable compliance. After speaking with Dr. Cortes at [facility] and discussing patient's case, it was decided that we will switch patient onto weekly injections of Prolixin D 50 mg. Patient received a dose of Prolixin D 50 mg IM on 02/22/21 and will be due for his next injection on 03/01/21. Patient spoke of his stressors and engaged in therapy both group and individual. Patient was also seen by medical team for history and physical exam. Throughout the course of the hospitalization patient gradually improved with regards to mood, anxiety, psychosis/delusions, sleep and return back to his baseline level of functioning. On the day of discharge patient denied any suicidal or homicidal ideations intent or plan denied any auditory or visual hallucinations. Patient endorsed wanting to live for his health and his future. The patient denied any access to guns or weapons. Patient denied any paranoia and did not endorse any delusions. Patient does not have a significant history of substance abuse however was counseled on abstaining from all substances including alcohol and marijuana. Patient was also counseled on the medications and need for regular compliance and was encouraged to follow-up with their outpatient appointment for mental health and also for primary care. Prior to discharge, social security specialist will coordinate with [facility] paste worker and liaison to ensure that patient gets adequate follow-up and closer monitoring at home. Mental status exam: General Appearance: Patient appears to be stated age is alert, pleasant, and cooperative. Patient is in no acute distress and has improved hygiene and grooming Behavior: Patient is calmly seated without any agitated behavior. Speech: Patient's speech is fluent and nonpressured. [place]. Mood/Affect: Patient reports their mood is "better", affect is congruent Suicidality/Homicidality: Patient denies having any suicidal or homicidal ideation intent or plan. Perceptions: Patient denies any auditory or visual hallucinations. Though content/process: There is no evidence of any delusional thought content and thought process is linear and goal-directed. [place]. Memory and concentration: AOX3, grossly intact for the purposes of this session. Can spell "WORLD" backwards correctly. Judgment and insight: improved with guarded prognosis Impression: Schizoaffective disorder unspecified Plan: -Continue with discharge today as patient has improved and stabilized psychiatrically and is not currently an imminent threat to himself and/or others. -Continue medications: After speaking with Dr. Cortes at [facility] and discussing patient's case, it was decided that we will switch patient onto weekly injections of Prolixin D 50 mg. Patient received a dose of Prolixin D 50 mg IM on 02/22/21 and will be due for his next injection on 03/01/21. Can continue with Clozaril 50 mg daily at bedtime for psychosis. -Patient was counseled on the need for medication compliance and appropriate follow-up at mental health and also primary care for medical issues. Patient verbalized understanding and agreed. -Social work to coordinate with [facility] paste worker and liaison for adequate patient follow-up and monitoring. He will be recommended that patient be enrolled in next step program through [facility]. Social work also to arrange for patients follow up appointments with [facility] for psychiatric care along with follow up with primary care provider. -Patient counseled on abstaining from recreational drugs and marijuana and alcohol. Was informed/educated on the adverse effects on their physical and mental health. Patient verbally agreed and understood. -Patient was instructed to return to the hospital or seek immediate medical care if their psychiatric or medical symptoms do worsen or reoccur. Allergies Allergy/AdvReac Type Severity Reaction Status Date / Time No Known Allergies Allergy Verified 02/21/21 23:51 Laboratory Results WBC 10.3 k/uL (3.8-10.6) 02/21/21 19:45 RBC 4.36 m/uL (4.30-5.90) 02/21/21 19:45 Hgb 10.5 gm/dL (13.0-17.5) L 02/21/21 19:45 Hct 31.9 % (39.0-53.0) L 02/21/21 19:45 MCV 73.2 fL (80.0-100.0) L 02/21/21 19:45 MCH 24.1 pg (25.0-35.0) L 02/21/21 19:45 MCHC 33.0 g/dL (31.0-37.0) 02/21/21 19:45 RDW 13.3 % (11.5-15.5) 02/21/21 19:45 Plt Count 389 k/uL (150-450) 02/21/21 19:45 MPV 6.4 02/21/21 19:45 Neutrophils % 70 % 02/21/21 19:45 Lymphocytes % 22 % 02/21/21 19:45 Monocytes % 5 % 02/21/21 19:45 Eosinophils % 1 % 02/21/21 19:45 Basophils % 1 % 02/21/21 19:45 Neutrophils # 7.2 k/uL (1.3-7.7) 02/21/21 19:45 Lymphocytes # 2.2 k/uL (1.0-4.8) 02/21/21 19:45 Monocytes # 0.5 k/uL (0-1.0) 02/21/21 19:45 Eosinophils # 0.1 k/uL (0-0.7) 02/21/21 19:45 Basophils # 0.1 k/uL (0-0.2) 02/21/21 19:45 Microcytosis Slight 02/21/21 19:45 POC Glucose (mg/dL) 102 mg/dL (75-99) H 02/24/21 07:42 POC Glu Radio Journalist ID Tello Ball 02/24/21 07:42 Urine Opiates Screen Not Detected (NotDetected) 02/21/21 18:11 Ur Oxycodone Screen Not Detected (NotDetected) 02/21/21 18:11 Urine Methadone Screen Not Detected (NotDetected) 02/21/21 18:11 Ur Propoxyphene Screen Not Detected (NotDetected) 02/21/21 18:11 Ur Barbiturates Screen Not Detected (NotDetected) 02/21/21 18:11 U Tricyclic Antidepress Detected (NotDetected) H 02/21/21 18:11 Ur Phencyclidine Scrn Not Detected (NotDetected) 02/21/21 18:11 Clozapine 404 ng/mL (200-700) 02/21/21 19:45 Norclozapine 113 ng/mL (200-700) L 02/21/21 19:45 Ur Amphetamines Screen Not Detected (NotDetected) 02/21/21 18:11 U Methamphetamines Scrn Not Detected (NotDetected) 02/21/21 18:11 U Benzodiazepines Scrn Not Detected (NotDetected) 02/21/21 18:11 Urine Cocaine Screen Not Detected (NotDetected) 02/21/21 18:11 U Marijuana (THC) Screen Not Detected (NotDetected) 02/21/21 18:11 Influenza Type A (PCR) Not Detected (Not Detectd) 02/21/21 19:45 Influenza Type B (PCR) Not Detected (Not Detectd) 02/21/21 19:45 RSV (PCR) Not Detected (Not Detectd) 02/21/21 19:45 SARS-CoV-2 (PCR) Not Detected (Not Detectd) 02/21/21 19:45 Vital Signs Temp 97.8 F 02/23/21 08:00 Pulse 109 H 02/24/21 08:36 Resp 20 02/23/21 08:00 BP 119/74 02/24/21 08:36 Pulse Ox 99 02/23/21 08:00 Patient Condition at Discharge: Stable Plan - Discharge Summary New Discharge Prescriptions: New Aspirin 81 mg PO DAILY 30 Days chew metFORMIN HCL [Glucophage] 500 mg PO BID-W/MEALS 30 Days tab lisinopriL [Zestril] 2.5 mg PO DAILY 30 Days tab cloZAPine [Clozaril] 50 mg PO HS 30 Days tab Ferrous Sulfate [Iron (65 MG Elemental)] 325 mg PO W/SUPPER 30 Days tab Atorvastatin [Lipitor] 20 mg PO HS 30 Days tab Glycopyrrolate [Robinul] 1 mg PO BID 30 Days tab Continue Multivitamins, Thera [Multivitamin (formulary)] 1 tab PO DAILY [place]-3 Fatty Acids/Fish Oil [Fish Oil 1,000 mg Softgel] 1 cap PO BID Changed fluPHENAZine decanoate [Prolixin Decanoate] 50 mg IM Q7DAYS #1 ml Discontinued lisinopriL [Zestril] 2.5 mg PO DAILY Ferrous Sulfate [Feosol] 325 mg PO DAILY Aspirin EC [Ecotrin Low Dose] 81 mg PO DAILY metFORMIN HCL [Glucophage] 500 mg PO BID Simvastatin [Zocor] 40 mg PO HS cloZAPine [Clozaril] 400 mg PO HS Glycopyrrolate [Robinul Forte] 2 mg PO HS Discharge Medication List Multivitamins, Thera [Multivitamin (formulary)] 1 tab PO DAILY 03/02/19 [History] [place]-3 Fatty Acids/Fish Oil [Fish Oil 1,000 mg Softgel] 1 cap PO BID 03/02/19 [History] Aspirin 81 mg PO DAILY 30 Days chew 02/24/21 [Rx] Atorvastatin [Lipitor] 20 mg PO HS 30 Days tab 02/24/21 [Rx] Ferrous Sulfate [Iron (65 MG Elemental)] 325 mg PO W/SUPPER 30 Days tab 02/24/21 [Rx] Glycopyrrolate [Robinul] 1 mg PO BID 30 Days tab 02/24/21 [Rx] cloZAPine [Clozaril] 50 mg PO HS 30 Days tab 02/24/21 [Rx] fluPHENAZine decanoate [Prolixin Decanoate] 50 mg IM Q7DAYS #1 ml 02/24/21 [Rx] lisinopriL [Zestril] 2.5 mg PO DAILY 30 Days tab 02/24/21 [Rx] metFORMIN HCL [Glucophage] 500 mg PO BID-W/MEALS 30 Days tab 02/24/21 [Rx] Follow up Appointment(s)/Referral(s): [facility] [Outside] - 03/02/21 11:00 am (03-02-21 @ 11:[address] Cortes at [facility] office) Evie Berg MD [Primary Care Provider] - 1-2 days Activity/Diet/Wound Care/Special Instructions: Activity and diet as tolerated. Avoid the use of street drugs and alcohol. Take all medications as prescribed. When you are in need of refills on your medications please contact your medical provider and/or outpatient psychiatrist to have this done. Please go to scheduled outpatient appointment for aftercare treatment. If symptoms return or become worse, call the crisis line at and/or go to the nearest emergency room for evaluation. Discharge Disposition: HOME SELF-CARE
[2021-02-24 12:42] LABS: Glucose,Whole Blood 97 mg/dL (75-99)
== END 2021-02-24 13:17 | disposition home or self-care (01) | DRG 885 ==
LOC: EC 16:48 → 3MHU 23:39
PROVIDERS: ADMIT Psychiatry & Neurology Psychiatry; ATTEND Psychiatry & Neurology Psychiatry
DX: F25.9 Schizoaffective disorder, unspecified (principal); E11.9 Type 2 diabetes mellitus without complications; F31.9 Bipolar disorder, unspecified; F41.9 Anxiety disorder, unspecified; I10 Essential (primary) hypertension; Z79.82 Long term (current) use of aspirin; Z79.84 Long term (current) use of oral hypoglycemic drugs; Z79.899 Other long term (current) drug therapy
CPT/HCPCS: 36415; 80159; 80306; 82075; 85025; 87636; 99285

== ENCOUNTER → 2021-05-12 | Outpatient (CLI) | payer OTHER ==
--- NOTE | 2021-05-12 12:41 | US ---
EXAMINATION TYPE: US kidneys/renal and bladder DATE OF EXAM: 05/12/2021 COMPARISON: US 2016 CLINICAL HISTORY: R31.9 Hematuria. Microscopic hematuria EXAM MEASUREMENTS: Right Kidney: 11.5 x 4.8 x 5.1 cm Left Kidney: 10.4 x 5.5 x 5.7 cm Right Kidney: No evidence of hydro, possible cluster of calcifications mid, largest= 0.3 cm Left Kidney: Appeared wnl Bladder: wnl Bilateral Jets seen: Only right jet visualized There is no evidence for hydronephrosis at this point in time. No nephrolithiasis is seen. No josé s are identified. The urinary bladder is anechoic. IMPRESSION: Right nephrolithiasis.
== END | disposition home or self-care (01) ==
LOC: RADUSWWP 10:11
PROVIDERS: ATTEND Internal Medicine
DX: N20.0 Calculus of kidney (principal)
CPT/HCPCS: 76770

== ENCOUNTER → 2021-05-26 | Outpatient (CLI) | payer OTHER ==
[2021-05-27 02:34] LABS: African American GFR (CKD) 102.7 (60.0-200.0); Albumin 4.8 g/dL (3.80-4.90); Albumin/Globulin Ratio 1.92 (1.60-3.17); Calcium 9.6 mg/dL (8.7-10.3); Globulin 2.5 g/dL (1.6-3.3); Non-African American GFR(CKD) 88.6 (60.0-200.0); Potassium 4.6 mmol/L (3.5-5.5); Total Bilirubin 0.3 mg/dL (0.3-1.2); Total Protein 7.3 g/dL (6.2-8.2)
[2021-05-27 05:17] LABS: Hepatitis A Antibody IgM Non-Reactive (Non-Reactive); Hepatitis B Core IgM Non-Reactive (Non-Reactive); Hepatitis B Surface Antigen Non-Reactive (Non-Reactive); Hepatitis C IgG Antibody Non-Reactive (Non-Reactive)
== END | disposition home or self-care (01) ==
LOC: LABWHC1 12:38
PROVIDERS: ATTEND Internal Medicine
DX: Z13.818 Encounter for screening for other digestive system disorders (principal)
CPT/HCPCS: 36415; 80053; 80074

== ENCOUNTER → 2021-06-16 | Outpatient (CLI) | payer OTHER ==
[2021-06-19 08:49] LABS: Clozapine (Clozaril) 477 ng/mL (200-700); Norclozapine 174 ng/mL (200-700)
== END | disposition home or self-care (01) ==
LOC: LABWHC1 10:13
PROVIDERS: ATTEND Psychiatry & Neurology Psychiatry
DX: Z51.81 Encounter for therapeutic drug level monitoring (principal); Z79.899 Other long term (current) drug therapy
CPT/HCPCS: 36415; 80159

== ENCOUNTER → 2022-02-14 | Outpatient (CLI) | payer OTHER ==
--- NOTE | 2022-02-14 17:07 | XR ---
Mandible HISTORY: M 27.2 HISTORY: Left mandibular swelling Bone mineralization, joint spaces and alignment are maintained. No fracture or dislocation is evident . IMPRESSION: No abnormalities evident of the mandible.
== END | disposition home or self-care (01) ==
LOC: RADXRMAIN 16:16
PROVIDERS: ATTEND Registered Nurse
DX: M27.2 Inflammatory conditions of jaws (principal)
CPT/HCPCS: 70100

== ENCOUNTER → 2023-01-16 | Outpatient (CLI) | payer OTHER | END | disposition home or self-care (01) | LOC: RADNMMAIN 10:13 | PROVIDERS: ATTEND Psychiatry & Neurology Neurology | DX: Z53.9 Procedure and treatment not carried out, unspecified reason (principal) ==

== ENCOUNTER 2023-08-23 19:41 | Inpatient (IN) | payer OTHER ==
[2023-08-23 20:09] VITALS: TEMP 98.5
[2023-08-23] MEDS ORDERED: SODIUM CHLORIDE 0.9% 500 ML 500 ML IV STA (20:11)
[2023-08-23] MEDS ORDERED: SODIUM CHLORIDE 0.9% 1,000 ML IV STA (20:11)
[2023-08-23 20:21] LABS: Basophils % (A) 0 %; Eosinophils % (A) 0 %; HCT 33.8 % (39.0-53.0); HGB 10.8 gm/dL (13.0-17.5); Hypochromasia Slight; Lymphocytes # (A) 3.4 k/uL (1.0-4.8); Lymphocytes % (A) 43 %; MCH 24.5 pg (25.0-35.0); MCHC 31.9 g/dL (31.0-37.0); MCV 76.8 fL (80.0-100.0); Monocytes # (A) 0.3 k/uL (0-1.0); Monocytes % (A) 3 %; Neutrophils % (A) 51 %; Platelet Count 268 k/uL (150-450); RDW 14.9 % (11.5-15.5); WBC 7.9 k/uL (3.8-10.6)
[2023-08-23 20:41] LABS: ALT 16 U/L (4-49); AST 21 U/L (17-59); African American GFR (CKD) >90 (>60 ml/min/1.73 sqM); Albumin 4.4 g/dL (3.5-5.0); Alkaline Phosphatase 50 U/L (38-126); Anion Gap 14 mmol/L; Blood Urea Nitrogen 11 mg/dL (9-20); Calcium 9.1 mg/dL (8.4-10.2); Carbon Dioxide 23 mmol/L (22-30); Chloride 108 mmol/L (98-107); Glucose 111 mg/dL (74-99); Lipase 134 U/L (23-300); Magnesium 2.2 mg/dL (1.6-2.3); Non-African American GFR(CKD) >90 (>60 ml/min/1.73 sqM); Phosphorus 3.2 mg/dL (2.5-4.5); Sodium 145 mmol/L (137-145); Total Bilirubin 0.2 mg/dL (0.2-1.3); Total Protein 6.8 g/dL (6.3-8.2)
[2023-08-23 21:05] LABS: Alcohol 314 mg/dL
--- NOTE | 2023-08-23 21:57 | ED ---
Alcohol HPI - General Chief Complaint: Alcohol Stated Complaint: Altered Mental/ETOH Time Seen by Provider: 08/23/23 19:50 Source: EMS Mode of arrival: EMS - History of Present Illness Initial Comments: This is a 52-year-old male outside on the ground altered, allegedly has history of alcohol intoxication did admit to drinking today. Patient also has right psychiatric history. 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 Previous Visits for Alcohol Intoxication?: Yes Recent Trauma: Yes Treatments Prior to Arrival: none Chronic Alcohol Use: Yes - Related Data Home Medications Medication Instructions Recorded Confirmed Multivitamins, Thera [Multivitamin 1 tab PO DAILY 03/02/19 08/23/23 (formulary)] [place]-3 Fatty Acids/Fish Oil [Fish 1 cap PO BID 03/02/19 08/23/23 Oil 1,000 mg Softgel] Aspirin EC [Ecotrin Low Dose] 81 mg PO DAILY 08/23/23 08/23/23 Docusate Sodium 250 mg PO BID PRN 08/23/23 08/23/23 Ferrous Sulfate [Iron (65 MG 325 mg PO DAILY 08/23/23 08/23/23 Elemental)] Glycopyrrolate [Robinul Forte] 2 mg PO HS 08/23/23 08/23/23 cloZAPine [Clozaril] 400 mg PO HS 08/23/23 08/23/23 fluPHENAZine HCl 10 mg PO HS 08/23/23 08/23/23 metFORMIN HCL [Glucophage] 500 mg PO BID 08/23/23 08/23/23 Previous Rx's Medication Instructions Recorded Atorvastatin [Lipitor] 20 mg PO HS 30 Days tab 02/24/21 lisinopriL [Zestril] 2.5 mg PO DAILY 30 Days tab 02/24/21 Allergies Allergy/AdvReac Type Severity Reaction Status Date / Time No Known Allergies Allergy Verified 08/23/23 19:52 Review of Systems ROS Statement: Those systems with pertinent positive or pertinent negative responses have been documented in the HPI. ROS Other: All systems not noted in ROS Statement are negative. Past Medical History Past Medical History: Diabetes Mellitus History of Any Multi-Drug Resistant Organisms: None Reported Past Surgical History: Adenoidectomy, Appendectomy, Tonsillectomy Smoking Status: Never smoker General Exam General appearance: alert, in no apparent distress, appears intoxicated, anxious Head exam: Present: atraumatic, normocephalic, normal inspection Eye exam: Present: normal appearance, PERRL, EOMI. Absent: scleral icterus, conjunctival injection, periorbital swelling ENT exam: Present: normal exam, mucous membranes moist Neck exam: Present: normal inspection. Absent: tenderness, meningismus, lymphadenopathy Respiratory exam: Present: normal lung sounds bilaterally. Absent: respiratory distress, wheezes, rales, rhonchi, stridor Cardiovascular Exam: Present: normal rhythm, tachycardia, normal heart sounds. Absent: systolic murmur, diastolic murmur, rubs, gallop, clicks GI/Abdominal exam: Present: soft, normal bowel sounds. Absent: distended, tenderness, guarding, rebound, rigid Extremities exam: Present: normal inspection, full ROM, normal capillary refill. Absent: tenderness, pedal edema, joint swelling, calf tenderness Back exam: Present: normal inspection Neurological exam: Present: alert, oriented X3, CN II-XII intact Psychiatric exam: Present: normal affect, normal mood Skin exam: Present: warm, dry, intact, normal color. Absent: rash Course Vital Signs 08/23/23 08/23/23 08/24/23 19:52 21:29 03:59 Temperature 98.5 F Pulse Rate 125 H 107 H 111 H Respiratory 18 17 19 Rate Blood Pressure 122/72 104/67 131/81 O2 Sat by Pulse 94 L 94 L 98 Oximetry 08/24/23 08/24/23 08/24/23 06:49 07:40 09:12 Temperature 98.5 F Pulse Rate 110 H 108 H 89 Respiratory 19 20 20 Rate Blood Pressure 141/91 139/93 145/90 O2 Sat by Pulse 96 99 98 Oximetry - Reevaluation(s) Reevaluation #1: 08/23/23 23:04 Medical record is reviewed Reevaluation #2: 08/23/23 23:06 Patient still remains altered here in the ER Reevaluation #3: 08/23/23 23:06 Questions answered Reevaluation #4: 08/23/23 23:07 Was pt. sent in by a medical professional or institution (, PA, [facility], urgent care, hospital, or penitentiary...) When possible be specific @ -no Did you speak to anyone other than the patient for history (EMS, parent, family, police, friend...)? What history was obtained from this source @ -no Did you review nursing and triage notes (agree or disagree)? Why? @ -agree Are old charts reviewed (outside hosp., previous admission, EMS record, old EKG, old radiological studies, urgent care reports/EKG's, penitentiary records)? Report findings @ -yes Differential Diagnosis (chest pain, altered mental status, abdominal pain women, abdominal pain men, vaginal bleeding, weakness, fever, dyspnea, syncope, headache, dizziness, GI bleed, back pain, seizure, CVA, palpatations, mental health, musculoskeletal)? @ -prior EKG interpreted by me (3pts min.). @ -no X-rays interpreted by me (1pt min.). @ -no CT interpreted by me (1pt min.). @ -yes U/S interpreted by me (1pt. min.). @ -no What testing was considered but not performed or refused? (CT, X-rays, U/S, labs)? Why? @ -none What meds were considered but not given or refused? Why? @ -none Did you discuss the management of the patient with other professionals (professionals i.e. , PA, [facility], lab, RT, psych nurse, social insurance analyst, terminal make up operator, teacher, chief business officer, casework manager)? Give summary @ -no Was smoking cessation discussed for >3mins.? @ -no Was critical care preformed (if so, how long)? @ -no Were there social determinants of health that impacted care today? How? (Homelessness, low income, unemployed, alcoholism, drug addiction, transpor tation, low edu. Level, literacy, decrease access to med. care, long-term, rehab)? @ -none Was there de-escalation of care discussed even if they declined (Discuss DNR or withdrawal of care, Hospice)? DNR status @ -no What co-morbidities impacted this encounter? (DM, HTN, Smoking, COPD, CAD, Cancer, CVA, ARF, Chemo, Hep., AIDS, mental health diagnosis, sleep apnea, morbid obesity)? @ -none Was patient admitted / discharged? Hospital course, mention meds given and route, prescriptions, significant lab abnormalities, going to OR and other pertinent info. @ - 52 male to the emergency department for evaluation of alcohol intoxication, brain CT is negative patient remains altered here in the ER does have underlying psychiatric history with patient be admitted for significant intoxication Admitted for alcohol intoxication Undiagnosed new problem with uncertain prognosis? @ -no Drug Therapy requiring intensive monitoring for toxicity (Heparin, Nitro, Insulin, Cardizem)? @ -no Were any procedures done? @ -no Diagnosis/symptom? @ -Alcohol intoxication, altered mental status Acute, or Chronic, or Acute on Chronic? @ -Acute Uncomplicated (without systemic symptoms) or Complicated (systemic symptoms)? @ -Complicated Side effects of treatment? @ -no Exacerbation, Progression, or Severe Exacerbation? @ -exacerbation Poses a threat to life or bodily function? How? (Chest pain, [place], [place], pneumonia, PE, COPD, DKA, ARF, appy, cholecystitis, CVA, Diverticulitis, Homicidal, Suicidal, threat to staff... and all critical care pts) @ -yes significant overdose Reevaluation #5: 08/23/23 23:07 Differential Altered Mental Status: Hypoglycemia, DKA, hypercapnia, ETOH, overdose, CO poisoning, trauma, myxedema coma, HTN encephalopathy, infection, encephalitis, psychosis, intercranial hemorrhage, hepatic encephalopathy, meningitis, CVA, this is not meant to be an all-inclusive list - Consultations Consultation #1: Spoke with sound who agrees to admit this patient Medical Decision Making - Medical Decision Making 52 male to the emergency department for evaluation of alcohol intoxication, brain CT is negative patient remains altered here in the ER does have underlying psychiatric history with patient be admitted for significant intoxication - Lab Data Result diagrams: 08/24/23 07:24 08/24/23 07:24 Lab Results 08/23/23 08/23/23 Range/Units 20:11 20:11 WBC 7.9 (3.8-10.6) k/uL RBC 4.40 (4.30-5.90) m/uL Hgb 10.8 L (13.0-17.5) gm/dL Hct 33.8 L (39.0-53.0) % MCV 76.8 L (80.0-100.0) fL MCH 24.5 L (25.0-35.0) pg MCHC 31.9 (31.0-37.0) g/dL RDW 14.9 (11.5-15.5) % Plt Count 268 (150-450) k/uL MPV 7.0 Neutrophils % 51 % Lymphocytes % 43 % Monocytes % 3 % Eosinophils % 0 % Basophils % 0 % Neutrophils # 4.0 (1.3-7.7) k/uL Lymphocytes # 3.4 (1.0-4.8) k/uL Monocytes # 0.3 (0-1.0) k/uL Eosinophils # 0.0 (0-0.7) k/uL Basophils # 0.0 (0-0.2) k/uL Hypochromasia Slight Sodium 145 (137-145) mmol/L Potassium 4.0 (3.5-5.1) mmol/L Chloride 108 H (98-107) mmol/L Carbon Dioxide 23 (22-30) mmol/L Anion Gap 14 mmol/L BUN 11 (9-20) mg/dL Creatinine 0.80 (0.66-1.25) mg/dL Est GFR (CKD-EPI)AfAm >90 (>60 ml/min/1.73 sqM) Est GFR (CKD-EPI)NonAf >90 (>60 ml/min/1.73 sqM) Glucose 111 H (74-99) mg/dL Calcium 9.1 (8.4-10.2) mg/dL Phosphorus 3.2 (2.5-4.5) mg/dL Magnesium 2.2 (1.6-2.3) mg/dL Total Bilirubin 0.2 (0.2-1.3) mg/dL AST 21 (17-59) U/L ALT 16 (4-49) U/L Alkaline Phosphatase 50 (38-126) U/L Total Protein 6.8 (6.3-8.2) g/dL Albumin 4.4 (3.5-5.0) g/dL Lipase 134 (23-300) U/L Serum Alcohol 314 H* mg/dL - Radiology Data Radiology results: report reviewed (CT brain is negative for acute disease), image reviewed Disposition Clinical Impression: Alcoholic intoxication, Altered mental status Disposition: ADMITTED IP TO THIS [facility] Condition: Stable Is patient prescribed a controlled substance at d/c from ED?: No Time of Disposition: 23:00
--- NOTE | 2023-08-23 22:08 | CT ---
EXAMINATION TYPE: CT brain wo con DATE OF EXAM: 08/23/2023 HISTORY: Altered mental status Automated Exposure Control for Dose Reduction was Utilized. TECHNIQUE: CT scan of the head is performed without contrast. COMPARISON: None. FINDINGS: There is no acute intracranial hemorrhage or midline shift identified. There is mild diff use ventricular and sulcal prominence consistent with mild diffuse age-related cerebral atrophy. [place] -white matter differentiation is preserved. The globes are intact and the visualized sinuses are jailyn ar. IMPRESSION: No acute intracranial hemorrhage or midline shift.
[2023-08-23] MEDS ORDERED: ACETAMINOPHEN TAB 325 MG TAB PO PRN (23:01)
[2023-08-23] MEDS ORDERED: NALOXONE 0.4 MG/ML 1 ML VIAL IV PRN (23:01)
[2023-08-23] MEDS ORDERED: ONDANSETRON 4 MG/2 ML VIAL IVP PRN (23:01)
[2023-08-23] MEDS ORDERED: LORazepam 2 MG/ML INJ IV PRN ×3 (23:01)
[2023-08-23] MEDS ORDERED: DEXTROSE 5%-0.45% NACL 1,000 ML IV SCH (23:15)
--- NOTE | 2023-08-24 00:47 | P.HPIM ---
History of Present Illness H&P Date: 08/24/23 Patient is a 52-year-old male with a PMH of type II DM, hypertension, hyperlipidemia, and schizophrenia who was brought into the emergency room via EMS for alcohol intoxication. The patient reported drinking a pint of hard liquor earlier today. He stated that he could not recall how often he drinks hard liquor but states that it is not daily. He reported feeling well otherwise at the time of interview. He was slow to respond and appeared confused. Denied history of delirium tremens or alcohol withdrawal seizures. Also denied experiencing chest discomfort, shortness of breath, fever, chills, cough, nausea, vomiting, abdominal pain, diarrhea. CT brain in the emergency room was unremarkable. Laboratory evaluation revealed hemoglobin 10.8 with MCV 76.8, and serum alcohol level of 314. ED documentation reviewed and case discussed with ED provider. Review of systems: Pertinent positives and negatives as discussed in HPI, a complete review of systems was performed and all other systems are negative. Physical examination: Vital signs reviewed General: non toxic, no distress, appears at stated age, overweight Derm: no unusual rashes/lesions, warm Head: atraumatic, normocephalic, symmetric Eyes: EOMI, no lid lag, anicteric sclera, pupils equal round reactive to light ENT: Nose and ears atraumatic Neck: No cervical lymphadenopathy, trachea midline, supple Mouth: no lip lesion, mucus membranes moist Cardiovascular: S1S2 reg, no murmur, positive dorsalis pedis pulse bilateral, no edema Lungs: CTA bilateral, no rhonchi, no rales, no accessory muscle use Abdominal: soft, nontender to palpation, no guarding Ext: muscle strength 5 out of 5 in all 4 extremities grossly, no gross muscle atrophy, no contractures, Neuro: CN II-XI grossly intact, no gross focal neuro deficits Psych: Somewhat slow to respond, oriented to person and place and not to time Assessment: Alcohol intoxication Microcytic anemia, chronic Chronic conditions: Type II DM, hypertension, hyperlipidemia, schizophrenia Imaging: CT brain in the emergency room was unremarkable. Data Review: Laboratory evaluation revealed hemoglobin 10.8 with MCV 76.8, and serum alcohol level of 314. Plan: [facility] protocol C/w Thiamine, multivitamin, folic acid Seizure and fall precautions Monitor electrolytes Cardiac monitoring Patient previously had iron studies done which were nondiagnostic. Currenly on Iron supplmentation at home. Patient doesn't recall if he has had a colonoscopy. Will benefit from outpatient follow up with Colonoscopy Insulin sliding scale and blood glucose monitoring Continue the following home medications: -Lisinopril 2.5 mg by mouth daily -Lipitor 20 mg by mouth daily at bedtime -Aspirin 81 mg by mouth daily DVT prophylaxis: Lovenox subcu The patient is admitted with an anticipated less than 2 midnight stay for evaluation of EtOH CODE STATUS: Full Code Discussed with: Patient Anticipated discharge place: Home Past Medical History Past Medical History: Diabetes Mellitus History of Any Multi-Drug Resistant Organisms: None Reported Past Surgical History: Adenoidectomy, Appendectomy, Tonsillectomy Smoking Status: Never smoker Medications and Allergies Home Medications Medication Instructions Recorded Confirmed Type Multivitamins, Thera [Multivitamin 1 tab PO DAILY 03/02/19 08/23/23 History (formulary)] Vivian-3 Fatty Acids/Fish Oil [Fish 1 cap PO BID 03/02/19 08/23/23 History Oil 1,000 mg Softgel] Atorvastatin [Lipitor] 20 mg PO HS 30 Days tab 02/24/21 08/23/23 Rx lisinopriL [Zestril] 2.5 mg PO DAILY 30 Days tab 02/24/21 08/23/23 Rx Aspirin EC [Ecotrin Low Dose] 81 mg PO DAILY 08/23/23 08/23/23 History Docusate Sodium 250 mg PO BID PRN 08/23/23 08/23/23 History Ferrous Sulfate [Iron (65 MG 325 mg PO DAILY 08/23/23 08/23/23 History Elemental)] Glycopyrrolate [Robinul Forte] 2 mg PO HS 08/23/23 08/23/23 History cloZAPine [Clozaril] 400 mg PO HS 08/23/23 08/23/23 History fluPHENAZine HCl 10 mg PO HS 08/23/23 08/23/23 History metFORMIN HCL [Glucophage] 500 mg PO BID 08/23/23 08/23/23 History Allergies Allergy/AdvReac Type Severity Reaction Status Date / Time No Known Allergies Allergy Verified 08/23/23 19:52 Physical Exam Vitals: Vital Signs Temp Pulse Resp BP Pulse Ox 08/23/23 21:29 107 H 17 104/67 94 L 08/23/23 19:52 98.5 F 125 H 18 122/72 94 L Intake and Output 08/23/23 08/23/23 08/24/23 14:59 22:59 06:59 Other: Weight 104.326 kg Results CBC & Chem 7: 08/23/23 20:11 08/23/23 20:11 Labs: Abnormal Lab Results - Last 24 Hours (Table) 08/23/23 08/23/23 Range/Units 20:11 20:11 Hgb 10.8 L (13.0-17.5) gm/dL Hct 33.8 L (39.0-53.0) % MCV 76.8 L (80.0-100.0) fL MCH 24.5 L (25.0-35.0) pg Chloride 108 H (98-107) mmol/L Glucose 111 H (74-99) mg/dL Serum Alcohol 314 H* mg/dL
[2023-08-24 07:38] LABS: Basophils % (A) 0 %; Eosinophils % (A) 1 %; HCT 32.7 % (39.0-53.0); HGB 10.4 gm/dL (13.0-17.5); Hypochromasia Slight; Lymphocytes # (A) 2.8 k/uL (1.0-4.8); Lymphocytes % (A) 45 %; MCH 24.6 pg (25.0-35.0); MCV 76.9 fL (80.0-100.0); Mean Platelet Volume 7.5; Monocytes # (A) 0.3 k/uL (0-1.0); Monocytes % (A) 5 %; Neutrophils # (A) 2.9 k/uL (1.3-7.7); Neutrophils % (A) 47 %; Platelet Count 255 k/uL (150-450); RBC 4.25 m/uL (4.30-5.90); RDW 15.1 % (11.5-15.5); WBC 6.2 k/uL (3.8-10.6)
[2023-08-24 07:41] VITALS: RESP 20
[2023-08-24 08:16] LABS: ALT 16 U/L (4-49); AST 19 U/L (17-59); African American GFR (CKD) >90 (>60 ml/min/1.73 sqM); Albumin 4.1 g/dL (3.5-5.0); Alkaline Phosphatase 46 U/L (38-126); Anion Gap 13 mmol/L; Blood Urea Nitrogen 9 mg/dL (9-20); Calcium 8.6 mg/dL (8.4-10.2); Carbon Dioxide 25 mmol/L (22-30); Chloride 108 mmol/L (98-107); Glucose 93 mg/dL (74-99); Magnesium 2.1 mg/dL (1.6-2.3); Non-African American GFR(CKD) >90 (>60 ml/min/1.73 sqM); Potassium 3.5 mmol/L (3.5-5.1); Sodium 146 mmol/L (137-145); Total Bilirubin 0.2 mg/dL (0.2-1.3); Total Protein 6.6 g/dL (6.3-8.2)
[2023-08-24] MEDS ORDERED: FERROUS SULFATE 325 MG TAB PO SCH (09:00)
[2023-08-24] MEDS ORDERED: ENOXAPARIN 40 MG/0.4 ML SYRINGE SQ SCH (09:00)
[2023-08-24] MEDS ORDERED: THIAMINE 100 MG TAB PO SCH (09:00)
[2023-08-24] MEDS ORDERED: MULTIVITAMINS, THERA 1 EACH TAB PO SCH (09:00)
[2023-08-24] MEDS ORDERED: ASPIRIN 81 MG PO SCH (09:00)
[2023-08-24] MEDS ORDERED: FOLIC ACID 1 MG TAB PO SCH (09:00)
[2023-08-24 09:23] VITALS: BP 145/90; PULSE 89
--- NOTE | 2023-08-24 15:31 | P.DS ---
Providers Date of admission: 08/23/23 23:01 Expected date of discharge: 08/24/23 Attending physician: Azeb Mitchell MD Primary care physician: Stated None Hospital Course: Discharge Diagnosis: Acute alcohol intoxication Microcytic anemia, chronic likely secondary to long-standing alcohol use Hypertension Hyperlipidemia Schizophrenia Type 2 diabetes mellitus Hospital Course: Patient is a 52-year-old male with a PMH of type II DM, hypertension, hyperlipidemia, and schizophrenia who was brought into the emergency room via EMS for alcohol intoxication. Labs completed and reviewed. CBC unremarkable with the exception of showing microcytic anemia with hemoglobin of 10.8. BMP unremarkable. Magnesium normal findings at 2.2, potassium 4.0, and sodium 145. Patient's blood alcohol level upon arrival was 314. Patient was hospitalized overnight and provided with IV fluid hydration. Patient is now clinically sober and requesting discharge. Patient encouraged cessation of alcohol use and provided with community resources for outpatient drug and alcohol rehabilitation. Patient denies having daily alcohol problem. Patient medically stable for discharge at this time. Vital signs upon discharge blood pressure 145/90, heart rate 89, respiratory rate 20, temp 98.5F, SpO2 is 90% on room air. Physical exam: Patient seen and examined at bedside. He was clinically sober and medically stable for discharge at this time. Vital signs reviewed and stable. General: Nontoxic, no distress and appears stated age. Derm: Skin warm and dry, normal coloration for ethnicity. Head: Atraumatic, normocephalic and symmetric. Eyes: EOMs intact, no lid lag, and anicteric sclera Mouth: no lip lesions, mucus membranes moist Cardiovascular: regular rate and rhythm with normal S1S2, no murmur, positive posterior tibial pulses bilaterally, and cap refill < 2 seconds. Lungs: Respirations even, regular, and unlabored on room air. Lungs CTA bilaterally, no rhonchi, no rales, no wheezing, and no accessory muscle usage. Abdominal: soft, nontender to palpation, no guarding, no appreciable organomega ly Ext: ROM intact. No gross muscle atrophy, no edema, no contractures Neuro: Speech clear, face symmetrical and CN II-XII grossly intact with no noted focal neuro deficits Psych: Alert and oriented to person, place, time, and situation. Appropriate and pleasant affect. A total of 29 minutes of time were spent preparing this complex discharge summary. Pt was discharged on 08/24/23 at 8:46 AM. Patient was seen independently by Nurse Practitioner. This document was prepared using [employer] dictation software. Please allow for errors in brush filler hand while rare they do occur Bret Duran NP rendered care for this patient independently, reviewed the findings and plan as documented in the note above. I did not physically speak with or examine the patient on this date. . Patient Condition at Discharge: Stable Plan - Discharge Summary New Discharge Prescriptions: Continue Multivitamins, Thera [Multivitamin (formulary)] 1 tab PO DAILY [place]-3 Fatty Acids/Fish Oil [Fish Oil 1,000 mg Softgel] 1 cap PO BID lisinopriL [Zestril] 2.5 mg PO DAILY 30 Days tab Aspirin EC [Ecotrin Low Dose] 81 mg PO DAILY cloZAPine [Clozaril] 400 mg PO HS Docusate Sodium 250 mg PO BID PRN PRN Reason: Constipation Atorvastatin [Lipitor] 20 mg PO HS 30 Days tab fluPHENAZine HCl 10 mg PO HS Glycopyrrolate [Robinul Forte] 2 mg PO HS Ferrous Sulfate [Iron (65 MG Elemental)] 325 mg PO DAILY metFORMIN HCL [Glucophage] 500 mg PO BID Discharge Medication List Multivitamins, Thera [Multivitamin (formulary)] 1 tab PO DAILY 03/02/19 [History] [place]-3 Fatty Acids/Fish Oil [Fish Oil 1,000 mg Softgel] 1 cap PO BID 03/02/19 [History] Atorvastatin [Lipitor] 20 mg PO HS 30 Days tab 02/24/21 [Rx] lisinopriL [Zestril] 2.5 mg PO DAILY 30 Days tab 02/24/21 [Rx] Aspirin EC [Ecotrin Low Dose] 81 mg PO DAILY 08/23/23 [History] Docusate Sodium 250 mg PO BID PRN 08/23/23 [History] Ferrous Sulfate [Iron (65 MG Elemental)] 325 mg PO DAILY 08/23/23 [History] Glycopyrrolate [Robinul Forte] 2 mg PO HS 08/23/23 [History] cloZAPine [Clozaril] 400 mg PO HS 08/23/23 [History] fluPHENAZine HCl 10 mg PO HS 08/23/23 [History] metFORMIN HCL [Glucophage] 500 mg PO BID 08/23/23 [History] Follow up Appointment(s)/Referral(s): Woodrow Holt MD [STAFF PHYSICIAN] - 1 Week Patient Instructions/Handouts: Alcohol Intoxication (DC), Abuse of Alcohol (DC) Discharge/Stand Alone Forms: AA Meetings [facility] 24 - [facility], AA Meetings [place], Who Do I Call?, Community Resources, Outpatient Counseling, In Substance Abuse Facilities Discharge Disposition: HOME SELF-CARE
[2023-08-24] MEDS ORDERED: ATORVASTATIN 20 MG TAB PO SCH (21:00)
== END 2023-08-24 09:13 | disposition home or self-care (01) | DRG 775 ==
LOC: EC 19:41 → 4SSUR 23:01 → 5NMEDONC 08-24 01:04
PROVIDERS: ADMIT Internal Medicine; ATTEND Internal Medicine
DX: F10.129 Alcohol abuse with intoxication, unspecified (principal); D50.9 Iron deficiency anemia, unspecified; E11.9 Type 2 diabetes mellitus without complications; F20.9 Schizophrenia, unspecified; I10 Essential (primary) hypertension; E78.5 Hyperlipidemia, unspecified; Y90.8 Blood alcohol level of 240 mg/100 ml or more; Z79.82 Long term (current) use of aspirin; Z79.84 Long term (current) use of oral hypoglycemic drugs; Z87.891 Personal history of nicotine dependence; Z79.899 Other long term (current) drug therapy
CPT/HCPCS: 36415; 70450; 80053; 80320; 83690; 83735; 84100; 85025; 96360; 96361; 99285

== ENCOUNTER → 2024-06-11 | Outpatient (CLI) | payer OTHER | END | disposition home or self-care (01) | LOC: LABPRL 12:00 | PROVIDERS: ATTEND Psychiatry & Neurology Psychiatry | DX: Z79.899 Other long term (current) drug therapy (principal) | CPT/HCPCS: 80061; 82947; 83036; 85025 ==